=== PATIENT | female | born 1995 | race Two or more races ===

== ENCOUNTER 2025-07-24 19:17 | Emergency (ER) | payer BC, OTHER ==
[~2025-07-24] VITALS: Ht 152.4 cm; Wt 60.2 kg
[2025-07-24 20:31] LABS: Hematocrit 23.3 % (36.0-46.0); Mean Corpuscular Hemoglobin 15.5 pg (28.0-32.0); Mean Corpuscular Volume 54.4 fL (80.0-100.0)
[2025-07-24 20:33] LABS: Nucleated Red Blood Cells % 0.0 %
[2025-07-24 20:42] LABS: Hemoglobin 6.6 g/dL (12.2-16.2)
[2025-07-24 20:43] LABS: Anion Gap 11 (5-15); Carbon Dioxide 24 mmol/L (20-31); Chloride 105 mmol/L (98-107); Potassium 3.7 mmol/L (3.5-5.1); Sodium 140 mmol/L (136-145)
[2025-07-24 20:44] LABS: Calcium 9.3 mg/dL (8.7-10.4)
[2025-07-24 20:49] LABS: BUN/Creatinine Ratio 7.5 (10.0-20.0)
[2025-07-24 20:53] LABS: Blood Urea Nitrogen 5 mg/dL (9-23); Glucose 109 mg/dL (74-106)
--- NOTE | 2025-07-24 22:27 | ED.PDOC ---
History of Present Illness HPI Comments 30-year-old female with past medical history of anemia presenting for evaluation of low hemoglobin over the past months. Patient states that she had anemia as a child, previously required a blood transfusion many years ago. Saw primary care doctor earlier in the year and was told that she had anemia, however, only took iron supplementation for a couple of months. Started having symptoms of fatigue, headaches in the past few months and saw her primary care doctor for this, just had labs obtained within the past couple of weeks and was told that her hemoglobin was 6.7. Patient does report having heavy menstrual cycles. Not currently menstruating. Not currently taking any iron supplementation. Chief Complaint: Abnormal LAB's Time Seen by MD: 19:27 Allergies: Coded Allergies: No Known Drug Allergy (Verified Allergy, Unknown, 07/24/25) Mode of Arrival: Ambulatory Past Medical History PAST MEDICAL HISTORY: Anemia Constitutional: reports: fatigue EENTM: denies: blurred vision, double vision, ear bleeding, ear discharge, ear drainage, ear pain, ear ringing, eye pain, eye redness, hearing loss, mouth pain, mouth swelling, nasal discharge, nose bleeding, nose congestion, nose pain, photophobia, tearing, throat pain, throat swelling, voice changes, others Respiratory: denies: cough, hemoptysis, orthopnea, SOB at rest, shortness of breath, SOB with excertion, stridor, wheezing, others Cardiovascular: denies: chest pain, dizzy spells, diaphoresis, Dyspnea on exertion, edema, irregular heart beat, left arm pain, lightheadedness, palpitations, PND, syncope, others Gastrointestinal: denies: abdomen distended, abdominal pain, blood streaked bowels, constipated, diarrhea, dysphagia, difficulty swallowing, hematemesis, melena, nausea, poor appetite, poor fluid intake, rectal bleeding, rectal pain, vomiting, others Genitourinary: denies: abnormal vagina bleeding, burning, dyspareunia, dysuria, flank pain, frequency, hematuria, incontinence, pain, , vagina discharge, urgency, others Neurological: reports: headache Musculoskeletal: denies: back pain, gout, joint pain, joint swelling, muscle pain, muscle stiffness, neck pain, others Integumetry: denies: bruises, change in color, change in hair/nails, dryness, laceration, lesions, lumps, rash, wounds, others Allergic/Immunocompromised: denies: Difficulty Healing, Frequent Infections, Hives, Itching, others Hematologic/Lymphatic: reports: anemia Endocrine: denies: excessive hunger, excessive sweating, excessive thirst, excessive urination, flushing, intolerance to cold, intolerance to heat, unexplained weight gain, unexplained weight loss, others Psychiatric: denies: anxiety, bipolar disorder, depression, hopeless, panic disorder, schizophrenia, sleepless, suicidal, others Physical Exam General Appearance: None HEENT: Normal ENT Inspection Neck: None Respiratory: No Respiratory Distress, Normal Breath Sounds Cardiovascular: No Edema, Normal Peripheral Pulses, Regular Rate/Rhythm Breast Exam: Deferred Gastrointestinal: Non Tender, Soft Genitalia: Deferred Pelvic: Deferred Rectal: Deferred Extremities: Normal inspection Neurologic: Alert, marketing outreach coordinator II-XII nml as Tested, Motor Weakness Cerebellar Function: Normal Reflexes: NOT DONE Skin: Normal Color Lymphatic: No Adenopathy Was a procedure done? Was a procedure done?: Yes Sedation Sedation?: No Informed consent obtained: No Blood Transfusion Indication: Anemia Procedure: Blood Transfusion, Type and Crossed Informed consent obtained: Yes Risks/benefits/alt described: Yes Differential Dx Considerations may include: Symptomatic anemia, possible fibroids causing menorrhagia X-Ray, Labs, Meds, VS Vital Signs Date Time Temp Pulse Resp B/P (MAP) Pulse Ox O2 Delivery O2 Flow Rate FiO2 07/25/25 00:45 97.9 70 17 107/65 97.9 07/25/25 00:30 98.1 82 17 115/58 (77) 99 98.1 07/25/25 00:27 98.1 66 13 128/95 98.1 07/24/25 23:00 98.1 67 17 108/55 (72) 100 98.1 07/24/25 23:00 Room Air* 0 21 07/24/25 21:28 98.2 94 18 126/67 (86) 99 98.2 07/24/25 19:37 80 07/24/25 19:18 98.6 93 16 126/74 100 98.6 Lab Test 07/24/25 20:08 Range/Units White Blood Count 4.8 4.4-10.8 10^3/uL Red Blood Count 4.29 4.0-5.20 10^6/uL Hemoglobin 6.6 *L 12.2-16.2 g/dL Hematocrit 23.3 L 36.0-46.0 % Mean Corpuscular Volume 54.4 L 80.0-100.0 fL Mean Corpuscular Hemoglobin 15.5 L 28.0-32.0 pg Mean Corpuscular Hemoglobin Concent 28.5 L 32.0-36.0 g/dL Red Cell Distribution Width 20.5 H 11.8-14.3 % Platelet Count 488 H 140-450 10^3/uL Mean Platelet Volume 8.5 6.9-10.8 fL Neutrophils (%) (Auto) 58.0 37.0-80.0 % Lymphocytes (%) (Auto) 32.2 10.0-50.0 % Monocytes (%) (Auto) 5.0 0.0-12.0 % Eosinophils (%) (Auto) 3.4 0.0-7.0 % Basophils (%) (Auto) 1.4 0.0-2.0 % Neutrophils # (Auto) 2.8 1.6-8.6 10 ^3/uL Lymphocytes # (Auto) 1.5 0.4-5.4 10 ^3/uL Monocytes # (Auto) 0.2 0-1.3 10 ^3/uL Eosinophils # (Auto) 0.2 0-0.8 10 ^3/uL Basophils # (Auto) 0.1 0-0.2 10 ^3/uL Nucleated Red Blood Cells 0.0 % Sodium Level 140 136-145 mmol/L Potassium Level 3.7 3.5-5.1 mmol/L Chloride Level 105 98-107 mmol/L Carbon Dioxide Level 24 20-31 mmol/L Anion Gap 11 5-15 Blood Urea Nitrogen 5 L 9-23 mg/dL Creatinine 0.67 0.550-1.02 mg/dL Glomerular Filtration Rate Calc 122 >90 mL/min BUN/Creatinine Ratio 7.5 L 10.0-20.0 Serum Glucose 109 H 74-106 mg/dL Calcium Level 9.3 8.7-10.4 mg/dL Time of 1ST Reevaluation: 22:25 (Patient resting comfortably at this time, pending blood transfusion) Reevaluation 1ST: Unchanged Time of 2ND Reevaluation: 02:35 (Patient reports improvement of symptoms after blood transfusion. Stable for discharge for further outpatient management of anemia.) Patient Education/Counseling: Diagnosis, Treatment Family Education/Counseling: No Family Present SEPSIS Sepsis Screen Date sepsis recognized/suspect: Jul 24, 2025 Time Sepsis recognized/suspect: 1919 Recent Procedure: No On Antibiotic Therapy: No Respiratory Rate >20: No Heart Rate >90: No Temp<36 C (96.8 F) or >38.3 C: No SBP <90 or MAP <65 mmHG: No New Acute Mental Status Change: No Is the patient on CPAP, BIPAP,: No Physician Orders Test, Urine (07/24/25 19:39) Electrocardigram (07/24/25 20:02) Obtain Consent For: (07/24/25 21:24) Vital Signs .PER UNIT PROTOCOL (07/24/25 21:24) Administer Blood Products UD (07/24/25:24) Complete Blood Count (07/25/25 04:00) Comprehensive Metabolic Panel (07/25/25 04:00) Allergies (07/25/25 01:57) Code Status (07/25/25 01:57) 2 Gm Sodium Diet (07/25/25 Breakfast) Sodium Chloride 0.9% (07/25/25 02:00) Oxygen Per Hour (07/25/25 01:57) Hydrocodone-Acet 5/325mg Tab ([place] 5/32 (07/25/25 02:00) Ondansetron Hcl (Zofran) (07/25/25 02:00) Docusate Sodium Capsule (Colace Capsule) (07/25/25 02:00) Fall Risk Precautions In Place QSHIFT (07/25/25 01:57) Complete Blood Count (07/26/25 04:00) Comprehensive Metabolic Panel (07/26/25 04:00) Condition: Serious (07/25/25 01:57) Acetaminophen Tablet (Tylenol Tablet) (07/25/25 02:00) Maintain Bed Rest (07/25/25 01:57) Sequential Compression Device (07/25/25 ) Vital Signs Date Time Temp Pulse Resp B/P (MAP) Pulse Ox O2 Delivery O2 Flow Rate FiO2 07/25/25 00:45 97.9 70 17 107/65 97.9 07/25/25 00:30 98.1 82 17 115/58 (77) 99 98.1 07/25/25 00:27 98.1 66 13 128/95 98.1 07/24/25 23:00 98.1 67 17 108/55 (72) 100 98.1 07/24/25 23:00 Room Air* 0 21 07/24/25 21:28 98.2 94 18 126/67 (86) 99 98.2 07/24/25 19:37 80 07/24/25 19:18 98.6 93 16 126/74 100 98.6 Laboratory Tests Test 07/24/25 20:08 White Blood Count 4.8 10^3/uL (4.4-10.8) Departure 1 Departure Time of Disposition: 22:26 (30-year-old female with history of anemia sent in by primary care doctor for worsening anemia, critical hemoglobin. Patient has had prior history of anemia requiring blood transfusion, however, not currently taking any iron supplementation. Has a history of heavy menstrual cycles which is thought to be the cause of her anemia. Patient is not currently menstruating. Today her hemoglobin is 6.6 which is within transfusion range. Patient does report some symptoms of fatigue, weakness which are likely related to her anemia. Is not having any brisk volume blood loss, bleeding at this time. CBC notable for anemia, however, other blood counts within normal limits. Metabolic panel with no evidence of acute electrolyte abnormalities. Patient transfused 1 unit PRBC. Remained hemodynamically stable. Is not having any active bleeding at this time, does not require repeat CBC after blood transfusion. Given that the patient has not yet trialed iron supplementation for known anemia she will be discharged with a prescription for iron supplemen tation and Colace to help her have a bowel movement. Advised to follow up with outpatient primary care doctor to have her labs repeated to ensure that she is responding appropriately to iron supplementation.) Impression: Primary Impression: Symptomatic anemia Additional Impression: Menorrhagia Disposition: HOME / SELF CARE / HOMELESS Condition: Stable Additional Instructions: Your hemoglobin today was 6.6. You were given 1 unit packed red blood cell transfusion. You were then given a prescription to start iron supplementation. Please be aware the iron supplementation may cause some constipation for this reason you were given something out be have a bowel movement. Please also eat a diet rich in iron. Follow up with your primary care doctor to have your labs repeated to ensure that your hemoglobin is improving appropriately. e-Prescriptions Docusate Sodium (Colace) 100 Mg Cap 1 CAP PO BID PRN for 30 Days, #60 CAP 2 Refills Prov: CLIFF HEREDIA MD 07/25/25 Ferrous Sulfate (FERROUS SULFATE) 325 Mg Tb 1 TAB PO BID for 30 Days, #60 TAB 3 Refills Prov: CLIFF HEREDIA MD 07/25/25 Discharged With: Self Critical Care Note Critical Care Time?: Yes (30 min-critical care time only) Critical care comment: Patient with symptomatic anemia requiring 1 unit PRBC for critically low hemoglobin Stability Stability form required: No CLIFF HEREDIA MD Jul 24, 2025 22:27
[2025-07-25 00:27] VITALS: BP 128/95; PULSE 66; RESP 13; TEMP 98.1
[2025-07-25 00:45] VITALS: BP 107/65; PULSE 70; RESP 17; TEMP 97.9
[2025-07-25] MEDS ORDERED: ACETAMINOPHEN 325 MG TAB PO PRN (02:00)
[2025-07-25] MEDS ORDERED: HYDROcodone-ACET 5/325MG TAB PO PRN (02:00)
[2025-07-25] MEDS ORDERED: DOCUSATE SOD 100 MG CAP PO PRN (02:00)
[2025-07-25] MEDS ORDERED: ONDANSETRON HCL 4 MG/2 ML VIAL IV PRN (02:00)
[2025-07-25] MEDS: SODIUM CHLORIDE 0.9% 1,000 ML IV SCH (02:00)
[2025-07-25 02:36] VITALS: BP 114/71; PULSE 68; RESP 14; TEMP 97.4
[2025-07-25] MEDS ORDERED: DOCU-94 PO (02:41)
[2025-07-25] MEDS ORDERED: FER325T PO (02:41)
[2025-07-25 03:00] VITALS: BP 111/51; PULSE 77; RESP 14; O2SAT 98
--- NOTE | 2025-07-26 09:46 | ECG ---
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
== END 2025-07-25 02:42 | disposition home or self-care (01) ==
LOC: ER 19:23
DX: D64.9 Anemia, unspecified (principal); N92.0 Excessive and frequent menstruation with regular cycle
CPT/HCPCS: 36415; 36430; 80048; 85025; 86850; 86900; 86901; 86920; 93005; 99291; P9016